=== PATIENT | male | born 1985 | race Caucasian/White ===

== ENCOUNTER 2020-06-05 15:11 | Outpatient (CLI) | payer BC, SELFPAY ==
--- NOTE | ~2020-06-05 | US_ITS ---
EXAMINATION: US scrotum doppler EXAM DATE: 06/05/2020 15:45 INDICATION: Epididymitis. Was treated with antibiotics with improvement in a week later right testicu lar pain developed again. TECHNIQUE: Multiple grayscale and Doppler images of the testicles and scrotum were obtained bilateral ly. There is no prior study for comparison. FINDINGS: Right testicle measures 4.8 x 2.4 x 3.3 cm and is morphologically normal. Low resistance Doppler derik w confirmed, but there appears to be more vascularity to the right side than the left. The epididymis is unremarkable. There is no hydrocele or varicocele. Left testicle measures 4.9 x 2.5 x 3.1 cm and is morphologically normal. Low resistance Doppler flow confirmed. The epididymis is unremarkable. There is no hydrocele or varicocele. IMPRESSION: Mildly hypervascular right testicular parenchyma compared to left, could indicate right-s ided orchitis. Reviewed, dictated and finalized at location A. IMPRESSION: Mildly hypervascular right testicular parenchyma compared to left, could indicate right-sided orchitis.
== END 2020-06-05 15:12 ==
PROVIDERS: PCP Family Medicine; Visit Provider Family Medicine
DX: N45.1 Epididymitis (principal)
CPT/HCPCS: 76870; 93976